=== PATIENT | male | born 1990 | race Caucasian/White ===

== ENCOUNTER 2019-02-19 02:56 | Emergency (ER) | payer OTHER ==
[2019-02-19 04:29] VITALS: BP 128/73; PULSE 70; TEMP 97.8; BMI 29.1
--- NOTE | 2019-02-19 04:34 | PDOC ---
History of Present Illness - General Chief Complaint: Pain Stated Complaint: ABD PAIN Time Seen by Provider: 02/19/19 04:34 - History of Present Illness Initial Comments: 02/19/19 05:43 28 year old man with no pmhx who presents with abdominal pain around 2200 that occurred after eating a baked clam. The patient had cramping abdominal pain and vomiting x3. He reports he still has stabbing epigastric abdominal pain and slight nausea but has no other compalints. Denies any chest pain, shortness of breath, diarrhea or sontipation or recent illness. He has no otyher complaint.s ROS GENERAL/CONSTITUTIONAL: No fever or chills. No weakness. HEAD, EYES, EARS, NOSE AND THROAT: No sore throat. CARDIOVASCULAR: No chest pain or shortness of breath RESPIRATORY: No cough, wheezing, or hemoptysis. GASTROINTESTINAL: + nausea, vomiting, No diarrhea or constipation. GENITOURINARY: No dysuria, frequency, or change in urination. MUSCULOSKELETAL: No joint or muscle swelling or pain. No neck or back pain. SKIN: No rash NEUROLOGIC: No headache, vertigo, loss of consciousness, or change in strength/ sensation. PE GENERAL: Awake, alert, and fully oriented, in no acute distress HEAD: No signs of trauma, normocephalic, atraumatic EYES: EOMI, sclera anicteric, conjunctiva clear ENT: oropharynx clear without exudates. Moist mucosa NECK: Normal ROM, supple LUNGS: No distress, speaks full sentences, clear to auscultation bilaterally HEART: Regular rate and rhythm, normal S1 and S2, no murmurs, rubs or gallops, peripheral pulses normal and equal bilaterally. ABDOMEN: Soft, + very slight epigastric tenderness No guarding, no rebound. No masses EXTREMITIES : Normal inspection, Normal range of motion, no edema. No clubbing or cyanosis. NEUROLOGICAL: Cranial nerves II through XII grossly intact. Normal speech, no focal sensorimotor deficits SKIN: Warm, Dry, normal turgor, no rashes or lesions noted MDM DDX including but not limited to: gastroenteritis r/o pancreatitis vs appy vs bay ED Course: tylenol, pepcid, maalox, zofran On reassessment patient with improvement of symptoms pending labs - will set up call back for patient as he looks well and improved Christy Chavis, PGY2 Emergency Medicine Past History - Past Medical History Allergies/Adverse Reactions: Allergies Allergy/AdvReac Type Severity Reaction Status Date / Time No Known Allergies Allergy Verified 02/19/19 05:02 Home Medications: Ambulatory Orders Ondansetron [Zofran -] 4 mg PO BID #7 tablet 02/19/19 COPD: No - Psycho Social/Smoking Cessation Hx Smoking History: Never smoked Hx Alcohol Use: No Drug/Substance Use Hx: No *Physical Exam - Vital Signs Last Vital Signs Temp Pulse Resp BP Pulse Ox 97.8 F 70 16 128/73 96 02/19/19 03:10 02/19/19 03:10 02/19/19 03:10 02/19/19 03:10 02/19/19 03:10 Discharge - Discharge Information Problems reviewed: Yes Clinical Impression/Diagnosis: Vomiting Condition: Stable Disposition: HOME - Admission No - Additional Discharge Information Prescriptions: Ondansetron [Zofran -] 4 mg PO BID #7 tablet - Follow up/Referral Referrals: Daina Manley MD [Primary Care Provider] - - Patient Discharge Instructions Patient Printed Discharge Instructions: DI for Vomiting -- Adult Additional Instructions: You were seen in the ED for complaints of vomiting In the ED you were evaluated with labwork and you had improvement of your symptoms with medications here There does not appear to be an acute need for immediate hospitalization. Your labs have not resulted yet, but you will receive a call with your results You are advised to follow up with your Primary Care Physician within 1 week. You were given a prescription for Return to the ED immediately if you experience worsening abdominal pain, nausea , vomiting, fever or any other concerning symptoms - Post Discharge Activity Work/Back to School Note: Back to Work
[2019-02-19] MEDS ORDERED: FAMOTIDINE 20 MG TABLET PO ONE (04:50)
[2019-02-19] MEDS ORDERED: ACETAMINOPHEN 325 MG TABLET (FP) PO ONE (04:50)
[2019-02-19] MEDS ORDERED: MAG HYDROX/AL HYDROX/SIMETH -MYLANTA- ORAL SUSPENSION PO ONE (04:50)
[2019-02-19] MEDS ORDERED: ONDANSETRON 4 MG TABLET PO ONE (04:51)
[2019-02-19] MEDS ORDERED: MAG HYDROX/AL HYDROX/SIMETH 30 ML UNIT-DOSE CUP ONE (05:13)
--- NOTE | 2019-02-19 05:46 | PDOC ---
Attending Attestation - Resident Resident Name: Christy Chavis - ED Attending Attestation I have performed the following: I have examined & evaluated the patient, The case was reviewed & discussed with the resident, I agree w/resident's findings & plan - HPI HPI: 02/19/19 06:16 Pt ate a clam and immediately began to vomit +food poisoning Afebrile - Physicial Exam PE: 02/19/19 06:17 Afebrile VSS heart [id number] Lungs clear Abd soft NT ND No flank pain ext normal/no edema - Medical Decision Making 02/19/19 06:18 GI cocktail and he feels great. Pt will be sent home. He likely had food poisoning from an infected clam/or from toxin/ecoli in the underbaked clam. Pt feels better and is stable for discharge
[2019-02-19 06:40] LABS: BASO % 0.3 % (0-2.0); EOS % 1.5 % (0-4.5); HEMATOCRIT 44.1 % (35.4-49); HEMOGLOBIN 15.3 GM/dL (11.7-16.9); LYMPH % 20.7 % (8-40); MCH 28.8 pg (25.7-33.7); MCHC 34.6 g/dl (32.0-35.9); MEAN CELL VOLUME 83.1 fl (80-96); MEAN PLT VOLUME 8.6 fl (7.5-11.1); MONO % 7.4 % (3.8-10.2); NEUT % 70.1 % (42.8-82.8); PLATELET COUNT 284 K/MM3 (134-434); RBC 5.31 M/mm3 (4.00-5.60); WHITE BLOOD COUNT 8.5 K/mm3 (4.0-10.0)
[2019-02-19 07:10] LABS: ALBUMIN 4.2 g/dl (3.4-5.0); BILIRUBIN,TOTAL 0.6 mg/dL (0.2-1); BLOOD UREA NITROGEN 13.3 mg/dL (7-18); CALCIUM 9.4 mg/dL (8.5-10.1); CREATININE 0.8 mg/dL (0.55-1.3); POTASSIUM 4.5 mmol/L (3.5-5.1); TOT PROT 7.7 g/dl (6.4-8.2)
== END 2019-02-19 06:32 | disposition home or self-care (01) ==
LOC: JER 02:56
DX: A05.9 Bacterial foodborne intoxication, unspecified (principal)
CPT/HCPCS: 36415; 80053; 83690; 85025; 99282-25